=== PATIENT | male | born 1945 | race Caucasian/White ===

== ENCOUNTER 2025-03-08 16:32 | Emergency (ER) | payer OTHER ==
[~2025-03-08] VITALS: Ht 175.3 cm; Wt 77.3 kg
[~2025-03-08 16:32] MED LIST: ACET1TAB27 PO; AMIT-260 PO; IBUP-1493 PO; LISI-893 PO; OMEP-148 PO
[2025-03-08 18:00] VITALS: BP 136/85; PULSE 92; RESP 16; TEMP 97.8; O2SAT 98
[2025-03-08 18:01] LABS: BASOPHILS % (AUTO) 0.4 % (0.0-2.0); EOSINOPHILS % (AUTO) 0.7 % (1.0-6.0); HEMATOCRIT 37.6 % (41-53); HEMOGLOBIN 12.2 g/dL (13.5-17.5); LYMPHOCYTES # (AUTO) 2.4 K/uL (1.0-4.8); LYMPHOCYTES % (AUTO) 24.1 % (22.0-44.0); MEAN CORPUSCULAR HEMOGLOBIN 27.9 pg (26.0-34.0); MEAN CORPUSCULAR HGB CONC 32.3 G/dL (31.0-37.0); MEAN CORPUSCULAR VOLUME 86 fL (80-100); MONOCYTES # (AUTO) 0.7 K/uL (0.1-1.0); MONOCYTES % (AUTO) 7.1 % (2.0-9.0); NEUTROPHILS # (AUTO) 6.7 K/uL (1.8-7.7); NEUTROPHILS % (AUTO) 67.7 % (40.0-70.0); PLATELET COUNT (AUTO) 262 K/uL (150-450); RED BLOOD CELL COUNT(AUTO) 4.36 MIL/uL (4.50-5.90); RED CELL DISTRIBUTION WIDTH 16.1 % (11.5-14.5); WHITE BLOOD COUNT (AUTO) 9.8 K/uL (4.5-11.0)
[2025-03-08 18:08] LABS: ANION GAP 6 mmol/L (8-16); CALCIUM, TOTAL 8.9 mg/dL (8.8-10.5); CARBON DIOXIDE 31 mmol/L (22-29); CHLORIDE 100 mmol/L (98-107); CREATININE 0.89 mg/dL (0.60-1.30); GLOMERULAR FILTR. RATE CALC > 60 mL/min (>60); GLUCOSE,RANDOM 84 mg/dL (70-110); POTASSIUM 4.5 mmol/L (3.5-5.1); SODIUM SERUM 137 mmol/L (136-145); UREA NITROGEN, BLOOD 11 mg/dL (7-18)
[2025-03-08 18:18] LABS: TROPONIN I-HIGH SENSITIVITY 36 ng/L (<76)
== END 2025-03-08 20:04 | disposition left against medical advice (07) ==
LOC: EMS 16:32
DX: R07.9 Chest pain, unspecified (principal); Z53.21 Procedure and treatment not carried out due to patient leaving prior to being seen by health care provider
CPT/HCPCS: 71045; 80048; 84484; 85025; 93005; 36415-L1; 36415-TC

== ENCOUNTER 2025-05-31 08:56 | Inpatient (IN) | payer OTHER ==
[~2025-05-31] VITALS: Ht 177.8 cm; Wt 74.1 kg
[2025-05-31 09:49] LABS: PLATELET COUNT (AUTO) 282 K/uL (150-450); RED BLOOD CELL COUNT(AUTO) 4.16 MIL/uL (4.50-5.90); RED CELL DISTRIBUTION WIDTH 16.1 % (11.5-14.5); WHITE BLOOD COUNT (AUTO) 7.9 K/uL (4.5-11.0)
[2025-05-31 09:56] LABS: CALCIUM, TOTAL 8.4 mg/dL (8.8-10.5); CREATININE 0.76 mg/dL (0.60-1.30); GLOMERULAR FILTR. RATE CALC > 60 mL/min (>60); GLUCOSE,RANDOM 102 mg/dL (70-110); SODIUM SERUM 139 mmol/L (136-145); UREA NITROGEN, BLOOD 11 mg/dL (7-18)
[2025-05-31 09:59] LABS: ASPARTATE AMINOTRANSFERASE 22 U/L (15-37); CREATINE KINASE, TOTAL ONLY 103 U/L (39-308); TOTAL PROTEIN, SERUM 6.9 g/dL (6.4-8.2)
[2025-05-31 10:06] LABS: TROPONIN I-HIGH SENSITIVITY 35 ng/L (<76)
[2025-05-31 10:32] LABS: ALCOHOL, BLOOD (SERUM) < 3 mg/dL (0-10)
[2025-05-31 11:42] LABS: COVID AG,FIA SOURCE NASAL SWAB
[2025-05-31 12:07] LABS: INFLUENZA TYPE A NEGATIVE FOR TYPE A (NEGATIVE); INFLUENZA TYPE B NEGATIVE FOR TYPE B (NEGATIVE); SARS-COV2 (COVID) ANTIGEN,FIA Negative (Negative)
[2025-05-31 14:21] LABS: APPEARANCE,URINE HAZY (CLEAR); GLUCOSE, URINE (UA) NEGATIVE (NEGATIVE); LEUKOCYTE ESTERASE ,URINE MODERATE (NEGATIVE); NITRATE,URINE POSITIVE (NEGATIVE); OCCULT BLOOD,URINE NEGATIVE (NEGATIVE); PH,URINE DRUG SCREEN 6.5 (5.0-8.0); SPECIFIC GRAVITIY, URINE 1.019 (1.003-1.030)
[2025-05-31 14:28] LABS: SQUAMOUS EPITHELIAL CELL,UR Rare /LPF (None Seen)
[2025-05-31 14:31] LABS: ALCOHOL, URINE DRUG SCREEN NEGATIVE (NEGATIVE); AMPHET/METH SCREEN,URINE POSITIVE (NEGATIVE); BARBITURATE SCREEN, URINE NEGATIVE (NEGATIVE); CANNABINOID SCREEN,URINE NEGATIVE (NEGATIVE); COCAINE SCREEN,URINE NEGATIVE (NEGATIVE); METHADONE SCREEN, URINE NEGATIVE (NEGATIVE)
[2025-05-31] MEDS: CefTRIAXone 1 GM/DEXTROSE 50 ML IV ONE (14:58)
[2025-05-31 19:10] VITALS: BP 140/80; PULSE 96; RESP 18; TEMP 98; O2SAT 98
[2025-05-31 20:09] VITALS: BP 138/69; PULSE 92; RESP 18; TEMP 98.2; O2SAT 100
[2025-05-31] MEDS ORDERED: ALBUTEROL SULFATE 2.5 MG/0.5 ML NEB SOLUTION NEB PRN (22:30)
[2025-05-31] MEDS ORDERED: MAGNESIUM HYDROXIDE SUSPENSION 30 ML UDCUP PO PRN (22:30)
[2025-05-31] MEDS ORDERED: ONDANSETRON HCL 4 MG/2 ML VIAL IVP PRN (22:30)
[2025-05-31] MEDS ORDERED: BISACODYL 10 MG RECTAL RECTAL SUPPOSITORY PR PRN (22:30)
[2025-05-31] MEDS ORDERED: ZOLPIDEM TARTRATE 5 MG TABLET PO PRN (22:30)
[2025-05-31] MEDS ORDERED: IPRATROPIUM BROMIDE 0.5 MG/2.5 ML NEB SOLUTION NEB PRN (22:30)
[2025-05-31] MEDS ORDERED: ACETAMINOPHEN 325 MG TABLET PO PRN (22:30)
[2025-05-31] MEDS: HEPARIN SODIUM,PORCINE 5,000 UNITS/ML VIAL SQ SCH (23:44)
[2025-06-01] VITALS (7 sets, daily range): BP systolic 125–151; BP diastolic 67–102; PULSE 95–142; RESP 16–20; TEMP 97.3–99; O2SAT 96–99
[2025-06-01 06:07] LABS: CALCIUM, TOTAL 8.8 mg/dL (8.8-10.5); CREATININE 0.77 mg/dL (0.60-1.30); GLOMERULAR FILTR. RATE CALC > 60 mL/min (>60); GLUCOSE,RANDOM 102 mg/dL (70-110); SODIUM SERUM 139 mmol/L (136-145); UREA NITROGEN, BLOOD 10 mg/dL (7-18)
[2025-06-01 06:11] LABS: PLATELET COUNT (AUTO) 311 K/uL (150-450); RED BLOOD CELL COUNT(AUTO) 4.70 MIL/uL (4.50-5.90); RED CELL DISTRIBUTION WIDTH 15.9 % (11.5-14.5); WHITE BLOOD COUNT (AUTO) 9.4 K/uL (4.5-11.0)
[2025-06-01] MEDS: PANTOPRAZOLE SODIUM 40 MG DR TABLET PO SCH (08:24)
[2025-06-01] MEDS: HYDROCODONE/ACETAMINOPHEN 5-325 MG TABLET PO PRN (13:55)
[2025-06-01] MEDS: SODIUM CHLORIDE 0.45% 1,000 ML IV SCH (17:32)
[2025-06-02] VITALS (7 sets, daily range): BP systolic 131–159; BP diastolic 75–102; PULSE 91–129; RESP 17–19; TEMP 97.3–98.4; O2SAT 95–99
[2025-06-02] MEDS ORDERED: SODIUM CHLORIDE 0.9% 250 ML IV ONE (01:47)
[2025-06-02] MEDS: CefTRIAXone 1 GM/DEXTROSE 50 ML IV SCH (01:50)
[2025-06-02] MEDS: AZITHROMYCIN 500 MG/NS 250 ML IV SCH (02:36)
[2025-06-02 06:26] LABS: CALCIUM, TOTAL 8.9 mg/dL (8.8-10.5); CREATININE 0.73 mg/dL (0.60-1.30); GLOMERULAR FILTR. RATE CALC > 60 mL/min (>60); GLUCOSE,RANDOM 131 mg/dL (70-110); SODIUM SERUM 138 mmol/L (136-145); UREA NITROGEN, BLOOD 14 mg/dL (7-18)
[2025-06-02 08:17] LABS: PLATELET COUNT (AUTO) 341 K/uL (150-450); RED BLOOD CELL COUNT(AUTO) 5.09 MIL/uL (4.50-5.90); RED CELL DISTRIBUTION WIDTH 15.9 % (11.5-14.5); WHITE BLOOD COUNT (AUTO) 12.9 K/uL (4.5-11.0)
[2025-06-02] MEDS: METOPROLOL TARTRATE 25 MG TABLET PO ONE (11:59)
[2025-06-02] MEDS: METOPROLOL TARTRATE 25 MG TABLET PO SCH (21:11)
[2025-06-03 04:18] VITALS: BP 137/90; PULSE 127; RESP 18; TEMP 98.1; O2SAT 96
[2025-06-03 06:14] LABS: CALCIUM, TOTAL 8.7 mg/dL (8.8-10.5); CREATININE 0.78 mg/dL (0.60-1.30); GLOMERULAR FILTR. RATE CALC > 60 mL/min (>60); GLUCOSE,RANDOM 122 mg/dL (70-110); SODIUM SERUM 138 mmol/L (136-145); UREA NITROGEN, BLOOD 14 mg/dL (7-18)
[2025-06-03 07:00] LABS: PLATELET COUNT (AUTO) 357 K/uL (150-450); RED BLOOD CELL COUNT(AUTO) 5.16 MIL/uL (4.50-5.90); RED CELL DISTRIBUTION WIDTH 16.2 % (11.5-14.5); WHITE BLOOD COUNT (AUTO) 14.8 K/uL (4.5-11.0)
[2025-06-03 07:46] VITALS: BP 138/88; PULSE 130; RESP 18; TEMP 98; O2SAT 95
[2025-06-03] MEDS ORDERED: SODIUM CHLORIDE 0.9% 100 ML ONE (10:19)
[2025-06-03] MEDS ORDERED: IOHEXOL 350 MG/ML 100 ML VIAL ONE (10:19)
[2025-06-03 12:30] VITALS: BP 134/90; PULSE 118; RESP 18; TEMP 98; O2SAT 96
[2025-06-03] MEDS ORDERED: POTASSIUM CHL 10 MEQ/WATER 50 ML IV PRN (16:45)
[2025-06-03 17:15] VITALS: BP 139/94; PULSE 124; RESP 18; TEMP 98.1; O2SAT 95
[2025-06-03] MEDS: POTASSIUM CHLORIDE 20 MEQ ER TABLET PO PRN (17:21)
[2025-06-03] MEDS: FUROSEMIDE 20 MG/2 ML VIAL IVP ONE (17:22)
[2025-06-03 20:14] VITALS: BP 135/103; PULSE 128; RESP 19; TEMP 99.1; O2SAT 96
[2025-06-04 00:37] VITALS: BP 113/71; PULSE 101; RESP 19; TEMP 98.8; O2SAT 71
[2025-06-04 05:21] VITALS: BP 119/83; PULSE 129; RESP 17; TEMP 97.5; O2SAT 96
[2025-06-04 07:47] LABS: PLATELET COUNT (AUTO) 343 K/uL (150-450); RED BLOOD CELL COUNT(AUTO) 5.29 MIL/uL (4.50-5.90); RED CELL DISTRIBUTION WIDTH 16.5 % (11.5-14.5); WHITE BLOOD COUNT (AUTO) 14.8 K/uL (4.5-11.0)
[2025-06-04 07:56] LABS: CALCIUM, TOTAL 9.1 mg/dL (8.8-10.5); CREATININE 1.06 mg/dL (0.60-1.30); GLOMERULAR FILTR. RATE CALC > 60 mL/min (>60); GLUCOSE,RANDOM 116 mg/dL (70-110); SODIUM SERUM 138 mmol/L (136-145); UREA NITROGEN, BLOOD 20 mg/dL (7-18)
[2025-06-04] MEDS: SPIRONOLACTONE 25 MG TABLET PO SCH (08:00)
[2025-06-04] MEDS: LOSARTAN POTASSIUM 25 MG TABLET PO SCH (08:01)
[2025-06-04] MEDS: FUROSEMIDE 20 MG/2 ML VIAL IVP ONE (08:01)
[2025-06-04 08:03] LABS: TROPONIN I-HIGH SENSITIVITY 49 ng/L (<76)
[2025-06-04 08:13] VITALS: BP 131/99; PULSE 124; RESP 22; TEMP 98.8; O2SAT 96
[2025-06-04] MEDS ORDERED: MAGNESIUM SULFATE 2 GM/WATER 50 ML IV PRN (08:30)
[2025-06-04] MEDS ORDERED: MAGNESIUM OXIDE 400 MG TABLET PO PRN (08:30)
[2025-06-04] MEDS ORDERED: MAGNESIUM SULFATE 4 GM/WATER 100 ML IV PRN (08:30)
[2025-06-04] MEDS: MORPHINE SULFATE 2 MG/ML SYRINGE IVP PRN (08:52)
[2025-06-04 12:11] VITALS: BP 101/73; PULSE 104; RESP 18; TEMP 98.2; O2SAT 100
[2025-06-04 16:15] VITALS: BP 103/78; PULSE 61; RESP 18; TEMP 97.2; O2SAT 95
[2025-06-04 20:23] VITALS: BP 105/76; PULSE 90; RESP 19; TEMP 98.1; O2SAT 95
[2025-06-05 00:20] VITALS: BP 117/85; PULSE 94; RESP 20; TEMP 98.4; O2SAT 96
[2025-06-05] MEDS ORDERED: SODIUM CHLORIDE 0.9% 250 ML IV ONE (03:35)
[2025-06-05 06:17] VITALS: BP 112/77; PULSE 83; RESP 19; TEMP 98.4; O2SAT 95
[2025-06-05 07:11] LABS: PLATELET COUNT (AUTO) 313 K/uL (150-450); RED BLOOD CELL COUNT(AUTO) 5.01 MIL/uL (4.50-5.90); RED CELL DISTRIBUTION WIDTH 16.5 % (11.5-14.5); WHITE BLOOD COUNT (AUTO) 11.3 K/uL (4.5-11.0)
[2025-06-05 07:20] VITALS: BP 100/70; PULSE 84; RESP 18; O2SAT 95
[2025-06-05 07:24] LABS: CALCIUM, TOTAL 8.8 mg/dL (8.8-10.5); CREATININE 0.97 mg/dL (0.60-1.30); GLOMERULAR FILTR. RATE CALC > 60 mL/min (>60); GLUCOSE,RANDOM 101 mg/dL (70-110); SODIUM SERUM 137 mmol/L (136-145); UREA NITROGEN, BLOOD 27 mg/dL (7-18)
[2025-06-05] MEDS: FUROSEMIDE 20 MG TABLET PO SCH (08:10)
[2025-06-05 11:14] VITALS: BP 91/68; PULSE 76; RESP 18; O2SAT 94
[2025-06-05 16:21] VITALS: BP 104/70; PULSE 82; RESP 18; TEMP 98.4; O2SAT 95
[2025-06-05 20:30] VITALS: BP 101/58; PULSE 78; RESP 19; TEMP 98.4; O2SAT 95
[2025-06-06] VITALS (7 sets, daily range): BP systolic 101–132; BP diastolic 63–76; PULSE 73–83; RESP 18–19; TEMP 97.5–98.6; O2SAT 95–98
[2025-06-06 07:23] LABS: PLATELET COUNT (AUTO) 271 K/uL (150-450); RED BLOOD CELL COUNT(AUTO) 4.82 MIL/uL (4.50-5.90); RED CELL DISTRIBUTION WIDTH 16.5 % (11.5-14.5); WHITE BLOOD COUNT (AUTO) 10.0 K/uL (4.5-11.0)
[2025-06-06] MEDS ORDERED: EMPAGLIFLOZIN 10 MG TABLET PO SCH (09:00)
[2025-06-07 04:30] VITALS: BP 114/69; PULSE 72; RESP 18; TEMP 98.2; O2SAT 98
[2025-06-07 05:24] VITALS: BP 113/60; PULSE 72; RESP 18; TEMP 97.9; O2SAT 96
[2025-06-07 08:00] VITALS: BP 110/65; PULSE 75; RESP 20; TEMP 97.7; O2SAT 98
[2025-06-07 16:00] VITALS: BP 101/65; PULSE 80; RESP 18; TEMP 98.8; O2SAT 97
[2025-06-07] MEDS ORDERED: FURO20TA5 PO (17:17)
[2025-06-07] MEDS ORDERED: PANT-31 PO (17:18)
[2025-06-07] MEDS ORDERED: LOSA-381 PO (17:18)
[2025-06-07] MEDS ORDERED: HEPA50009 SQ (17:18)
[2025-06-07] MEDS ORDERED: SPIR-37 PO (17:19)
[2025-06-07] MEDS ORDERED: ACET-2247 PO (17:22)
[2025-06-07] MEDS ORDERED: MAGN-169 PO (17:24)
[2025-06-07] MEDS ORDERED: ALBU2.5V39 NEB (17:24)
[2025-06-07] MEDS ORDERED: CARV12 PO (17:25)
[2025-06-07] MEDS ORDERED: METH-386 PO (17:26)
[2025-06-07] MEDS ORDERED: LEVO-72 PO (17:26)
== END 2025-06-07 18:37 | DRG 91 ==
LOC: EMS 09:00 → EDH 11:40 → 5S 17:45 → 6S 06-07 04:47
PROVIDERS: ADMIT Hospitalist; ATTEND Hospitalist
PROC: 05HA33Z Insertion of Infusion Device into Left Brachial Vein, Percutaneous Approach (ICD-10-PCS; principal; 2025-06-06)
PROC: B54NZZA Ultrasonography of Left Upper Extremity Veins, Guidance (ICD-10-PCS; 2025-06-06)
DX: G92.8 Other toxic encephalopathy (principal); I50.23 Acute on chronic systolic (congestive) heart failure; J18.9 Pneumonia, unspecified organism; N39.0 Urinary tract infection, site not specified; I42.0 Dilated cardiomyopathy; I47.20 Ventricular tachycardia, unspecified; Z59.02 Unsheltered homelessness; I11.0 Hypertensive heart disease with heart failure; F41.9 Anxiety disorder, unspecified; B96.20 Unspecified Escherichia coli [E. coli] as the cause of diseases classified elsewhere; E05.90 Thyrotoxicosis, unspecified without thyrotoxic crisis or storm; F19.10 Other psychoactive substance abuse, uncomplicated; R26.9 Unspecified abnormalities of gait and mobility; E87.6 Hypokalemia; I35.0 Nonrheumatic aortic (valve) stenosis; I77.819 Aortic ectasia, unspecified site; Z20.822 Contact with and (suspected) exposure to COVID-19
CPT/HCPCS: 36245; 36569; 70450; 71045; 71275; 72125; 74177; 76937; 80048; 80076; 80307; 81001; 82040; 82140; 82550; 83735; 83880; 84132; 84439; 84443; 84484; 85025; 85610; 85730; 87077; 87086; 87186; 87804; 93005; 93306; 97116; 97162; 97166; 97535; 99285; G0378; G0480; J0456; J0696; J1644; J1938; J2270; J7050; 36415-L1; 36415-TC

== ENCOUNTER 2025-08-08 16:40 | Emergency (ER) | payer OTHER ==
[~2025-08-08] VITALS: Ht 177.8 cm; Wt 68.2 kg
[~2025-08-08 16:40] MED LIST changes: +ACET-2247 PO; -ACET1TAB27 PO; +ALBU2.5V39 NEB; -AMIT-260 PO; +CARV12 PO; +FURO20TA5 PO; +HEPA50009 SQ; -IBUP-1493 PO; +LEVO-72 PO; -LISI-893 PO; +LOSA-381 PO; +MAGN-169 PO; +METH-386 PO; -OMEP-148 PO; +PANT-31 PO; +SPIR-37 PO
[2025-08-08 17:17] VITALS: BP 129/71; PULSE 98; RESP 18; TEMP 98.8; O2SAT 99
[2025-08-09] MEDS ORDERED: CEPH-558 PO (14:35)
[2025-08-09] MEDS ORDERED: SULF1TAB94 PO (14:35)
== END 2025-08-08 18:22 | disposition left against medical advice (07) ==
LOC: EMS 16:40
DX: M79.672 Pain in left foot (principal); Z53.21 Procedure and treatment not carried out due to patient leaving prior to being seen by health care provider
CPT/HCPCS: 82962; 99281

== ENCOUNTER 2025-08-23 13:54 | Emergency (ER) | payer OTHER ==
[~2025-08-23] VITALS: Ht 175.3 cm; Wt 78.0 kg
[~2025-08-23 13:54] MED LIST changes: +CEPH-558 PO; +SULF1TAB94 PO
[2025-08-23 14:10] VITALS: TEMP 97.9
[2025-08-23 14:30] VITALS: BP 127/88; PULSE 62; RESP 18; O2SAT 94
[2025-08-23] MEDS: CEPHALEXIN MONOHYDRATE 500 MG CAPSULE PO ONE (14:50)
[2025-08-23] MEDS: SULFAMETHOX/TRIMETH DS 800-160 MG/TABLET PO ONE (14:50)
[2025-08-23] MEDS: BACITRACIN 28 GM OINTMENT TP ONE (14:50)
[2025-08-23] MEDS ORDERED: CEPH-558 PO (14:56)
[2025-08-23] MEDS ORDERED: SULF1TAB94 PO (14:56)
== END 2025-08-23 15:35 | disposition home or self-care (01) ==
LOC: EMS 13:56
DX: S91.302D Unspecified open wound, left foot, subsequent encounter (principal); E11.9 Type 2 diabetes mellitus without complications; F41.9 Anxiety disorder, unspecified; Z76.0 Encounter for issue of repeat prescription; Z79.899 Other long term (current) drug therapy; X58.XXXD Exposure to other specified factors, subsequent encounter
CPT/HCPCS: 99284; Z7502; Z7610

== ENCOUNTER 2025-09-04 15:55 | Inpatient (IN) | payer OTHER ==
[~2025-09-04] VITALS: Ht 175.3 cm; Wt 76.5 kg
[~2025-09-04 15:55] MED LIST changes: +ASPI-1450 PO; -CARV12 PO; -CEPH-558 PO; +FURO20TA4 PO; -FURO20TA5 PO; -HEPA50009 SQ; -LEVO-72 PO; -LOSA-381 PO; +LOSA-417 PO; +METO25 PO; -SULF1TAB94 PO
[2025-09-04 17:47] LABS: PLATELET COUNT (AUTO) 258 K/uL (150-450); RED BLOOD CELL COUNT(AUTO) 4.20 MIL/uL (4.50-5.90); RED CELL DISTRIBUTION WIDTH 16.7 % (11.5-14.5); WHITE BLOOD COUNT (AUTO) 11.7 K/uL (4.5-11.0)
[2025-09-04] MEDS: SODIUM CHLORIDE 0.9% 1,000 ML IV ONE (17:56)
[2025-09-04] MEDS: ACETAMINOPHEN 500 MG TABLET PO ONE (17:58)
[2025-09-04 18:13] LABS: CALCIUM, TOTAL 8.5 mg/dL (8.8-10.5); CREATININE 0.79 mg/dL (0.60-1.30); GLOMERULAR FILTR. RATE CALC > 60 mL/min (>60); GLUCOSE,RANDOM 90 mg/dL (70-110); SODIUM SERUM 140 mmol/L (136-145); UREA NITROGEN, BLOOD 12 mg/dL (7-18)
[2025-09-04] MEDS: VANCOMYCIN 1.25 GM/WATER(PEG) 250 ML IV ONE (18:18)
[2025-09-04 18:22] LABS: LACTIC ACID 2.0 mmol/L (0.4-2.0)
[2025-09-05] MEDS ORDERED: ALBUTEROL SULFATE 2.5 MG/0.5 ML NEB SOLUTION NEB PRN (00:15)
[2025-09-05] MEDS ORDERED: ONDANSETRON HCL 4 MG/2 ML VIAL IVP PRN (00:15)
[2025-09-05] MEDS ORDERED: BISACODYL 10 MG RECTAL RECTAL SUPPOSITORY PR PRN (00:15)
[2025-09-05] MEDS ORDERED: MAGNESIUM HYDROXIDE SUSPENSION 30 ML UDCUP PO PRN (00:15)
[2025-09-05] MEDS ORDERED: IPRATROPIUM BROMIDE 0.5 MG/2.5 ML NEB SOLUTION NEB PRN (00:15)
[2025-09-05] MEDS: MORPHINE SULFATE 2 MG/ML SYRINGE IVP ONE (00:52)
[2025-09-05] MEDS: PIPERACILLIN/TAZO 3.375 GM/D5W 50 ML IV ONE (00:52)
[2025-09-05] MEDS: HYDROCODONE/ACETAMINOPHEN 5-325 MG TABLET PO PRN (02:41)
[2025-09-05 03:07] VITALS: BP 130/83; PULSE 87; RESP 18; TEMP 98.2; O2SAT 98
[2025-09-05] MEDS ORDERED: SODIUM CHLORIDE 0.9% 500 ML IV ONE (08:06)
[2025-09-05] MEDS: PANTOPRAZOLE SODIUM 40 MG DR TABLET PO SCH (08:25)
[2025-09-05] MEDS: HEPARIN SODIUM,PORCINE 5,000 UNITS/ML VIAL SQ SCH (08:26)
[2025-09-05] MEDS: VANCOMYCIN 1GM/WATER(PEG/NADA) 200 ML IV SCH (08:30)
[2025-09-05 08:44] VITALS: BP 115/78; PULSE 84; RESP 18; TEMP 98.1; O2SAT 96
[2025-09-05 11:25] LABS: CALCIUM, TOTAL 8.5 mg/dL (8.8-10.5); CREATININE 0.67 mg/dL (0.60-1.30); GLOMERULAR FILTR. RATE CALC > 60 mL/min (>60); GLUCOSE,RANDOM 72 mg/dL (70-110); SODIUM SERUM 140 mmol/L (136-145); UREA NITROGEN, BLOOD 10 mg/dL (7-18)
[2025-09-05 12:08] VITALS: BP 115/78; PULSE 84; RESP 18; TEMP 98.1; O2SAT 94
[2025-09-05 16:40] VITALS: BP 111/69; PULSE 70; RESP 19; TEMP 98.1; O2SAT 97
[2025-09-05 19:17] VITALS: BP 108/64; PULSE 88; RESP 18; TEMP 98.2; O2SAT 98
[2025-09-06 04:21] VITALS: BP 116/69; PULSE 86; RESP 18; TEMP 98.4; O2SAT 98
[2025-09-06 06:57] LABS: CALCIUM, TOTAL 8.3 mg/dL (8.8-10.5); CREATININE 0.63 mg/dL (0.60-1.30); GLOMERULAR FILTR. RATE CALC > 60 mL/min (>60); GLUCOSE,RANDOM 93 mg/dL (70-110); SODIUM SERUM 139 mmol/L (136-145); UREA NITROGEN, BLOOD 11 mg/dL (7-18)
[2025-09-06 08:16] VITALS: BP 122/90; PULSE 89; RESP 18; TEMP 98.6; O2SAT 99
[2025-09-06 16:29] VITALS: BP 114/68; PULSE 84; RESP 18; TEMP 98.3; O2SAT 98
[2025-09-06] MEDS: VANCOMYCIN 1.25 GM/WATER(PEG) 250 ML IV SCH (19:33)
[2025-09-06 20:17] VITALS: BP 112/62; PULSE 103; RESP 18; TEMP 98.1; O2SAT 97
[2025-09-07 05:02] VITALS: BP 130/81; PULSE 104; RESP 18; TEMP 97.9; O2SAT 98
[2025-09-07 07:41] LABS: CALCIUM, TOTAL 8.7 mg/dL (8.8-10.5); CREATININE 0.65 mg/dL (0.60-1.30); GLOMERULAR FILTR. RATE CALC > 60 mL/min (>60); GLUCOSE,RANDOM 112 mg/dL (70-110); SODIUM SERUM 136 mmol/L (136-145); UREA NITROGEN, BLOOD 12 mg/dL (7-18)
[2025-09-07 08:43] VITALS: BP 139/86; PULSE 98; RESP 19; TEMP 98.2; O2SAT 100
[2025-09-07 19:35] VITALS: BP 108/66; PULSE 96; RESP 18; TEMP 98.6; O2SAT 99
[2025-09-08 04:54] VITALS: BP 125/77; PULSE 98; RESP 18; TEMP 97.7; O2SAT 98
[2025-09-08 08:15] VITALS: BP 113/74; PULSE 98; RESP 18; TEMP 98.8; O2SAT 98
[2025-09-08 08:15] LABS: CALCIUM, TOTAL 8.9 mg/dL (8.8-10.5); CREATININE 0.66 mg/dL (0.60-1.30); GLOMERULAR FILTR. RATE CALC > 60 mL/min (>60); GLUCOSE,RANDOM 103 mg/dL (70-110); SODIUM SERUM 138 mmol/L (136-145); UREA NITROGEN, BLOOD 13 mg/dL (7-18)
[2025-09-08] MEDS ORDERED: GADOTERATE MEGLUMINE 10 MMOL/20 ML VIAL IVP ONE (10:02)
[2025-09-08] MEDS: MORPHINE SULFATE 4 MG/ML SYRINGE IVP PRN (14:53)
[2025-09-08 16:15] VITALS: BP 118/78; PULSE 96; RESP 18; TEMP 98.2; O2SAT 98
[2025-09-08 20:00] VITALS: BP 106/61; PULSE 96; RESP 18; TEMP 97.9; O2SAT 99
[2025-09-09] MEDS: ZOLPIDEM TARTRATE 5 MG TABLET PO PRN (01:49)
[2025-09-09] MEDS: ACETAMINOPHEN 325 MG TABLET PO PRN (01:49)
[2025-09-09 04:00] VITALS: BP 110/60; PULSE 95; RESP 18; TEMP 98; O2SAT 98
[2025-09-09 08:00] LABS: CALCIUM, TOTAL 8.6 mg/dL (8.8-10.5); CREATININE 0.73 mg/dL (0.60-1.30); GLOMERULAR FILTR. RATE CALC > 60 mL/min (>60); GLUCOSE,RANDOM 96 mg/dL (70-110); SODIUM SERUM 138 mmol/L (136-145); UREA NITROGEN, BLOOD 19 mg/dL (7-18)
[2025-09-09 08:41] VITALS: BP 131/80; PULSE 89; RESP 18; TEMP 98; O2SAT 98
[2025-09-09 16:00] VITALS: BP 109/63; PULSE 98; RESP 17; TEMP 97.7; O2SAT 97
[2025-09-09 19:04] VITALS: BP 102/68; PULSE 80; RESP 18; TEMP 98.4; O2SAT 98
[2025-09-09] MEDS ORDERED: SODIUM CHLORIDE 0.9% 1,000 ML ONE (19:35)
[2025-09-10 04:09] VITALS: BP 131/89; PULSE 78; RESP 18; TEMP 97.7; O2SAT 99
[2025-09-10 06:57] LABS: PLATELET COUNT (AUTO) 258 K/uL (150-450); RED BLOOD CELL COUNT(AUTO) 4.27 MIL/uL (4.50-5.90); RED CELL DISTRIBUTION WIDTH 16.7 % (11.5-14.5); WHITE BLOOD COUNT (AUTO) 9.3 K/uL (4.5-11.0)
[2025-09-10 07:03] LABS: CALCIUM, TOTAL 8.9 mg/dL (8.8-10.5); CREATININE 0.70 mg/dL (0.60-1.30); GLOMERULAR FILTR. RATE CALC > 60 mL/min (>60); GLUCOSE,RANDOM 104 mg/dL (70-110); SODIUM SERUM 137 mmol/L (136-145); UREA NITROGEN, BLOOD 15 mg/dL (7-18)
[2025-09-10 08:00] VITALS: BP 138/85; PULSE 90; RESP 20; TEMP 97.9; O2SAT 98
[2025-09-10] MEDS ORDERED: MELATONIN 3 MG TABLET PO PRN (12:30)
[2025-09-10] MEDS ORDERED: VANC250C13 PO (15:09)
[2025-09-10] MEDS ORDERED: IPRA0.2S49 NEB (15:10)
[2025-09-10] MEDS ORDERED: MELA3TAB89 PO (15:10)
[2025-09-10] MEDS ORDERED: HYDR-4062 PO (15:10)
[2025-09-10 16:00] VITALS: BP 119/85; PULSE 96; RESP 20; TEMP 98.1; O2SAT 98
[2025-09-10] MEDS ORDERED: MELATONIN 3 MG TABLET PO SCH (21:00)
== END 2025-09-10 18:10 | DRG 638 ==
LOC: EMS 15:55 → EDH 09-05 00:31 → 4E 09-05 02:17
PROVIDERS: ADMIT Hospitalist; ATTEND Hospitalist
DX: E11.621 Type 2 diabetes mellitus with foot ulcer (principal); L03.116 Cellulitis of left lower limb; L97.429 Non-pressure chronic ulcer of left heel and midfoot with unspecified severity; S91.302A Unspecified open wound, left foot, initial encounter; E03.9 Hypothyroidism, unspecified; Z59.02 Unsheltered homelessness; F41.9 Anxiety disorder, unspecified; X58.XXXA Exposure to other specified factors, initial encounter; Y93.89 Activity, other specified; Y92.89 Other specified places as the place of occurrence of the external cause; Y99.8 Other external cause status
CPT/HCPCS: 73720; 80048; 80202; 83605; 83735; 85025; 87040; 93925; 97116; 97162; 97166; 97535; 99285; G0378; J1644; J2270; J2543; J7030; J7040